=== PATIENT | male | born 1980 | race Caucasian/White ===

== ENCOUNTER 2021-02-17 16:35 | Emergency (ER) | payer OTHER ==
[~2021-02-17 16:35] MED LIST: BACTROBAN OINT22 GM EXT; CLEOCIN HCL300 MG PO; NAPROSYN500 MG PO
[2021-02-17] MEDS ORDERED: IBUPROFEN600 MG PO (18:28)
[2021-02-17] MEDS ORDERED: POLYSPORIN OI28.3 G1 TP (18:28)
[2021-02-17] MEDS ORDERED: HYDROCODON-ACE1 EAC4 PO (18:31)
== END 2021-02-17 18:37 | disposition home or self-care (01) ==
LOC: ER1 16:35
DX: S62.232A Other displaced fracture of base of first metacarpal bone, left hand, initial encounter for closed fracture (principal); S62.212A Bennett's fracture, left hand, initial encounter for closed fracture; F17.200 Nicotine dependence, unspecified, uncomplicated; V89.1XXA Person injured in unspecified nonmotor-vehicle accident, nontraffic, initial encounter; Z23 Encounter for immunization
CPT/HCPCS: 29125; 73130; 73562; 90471; 90715; 99283